=== PATIENT | male | born 1955 | race Caucasian/White ===

== ENCOUNTER 2020-04-18 13:38 | Outpatient (CLI) | payer MEDICARE, SELFPAY ==
--- NOTE | ~2020-04-18 | CT_ITS ---
EXAMINATION: CT abdomen pelvis wo/w con DATE: 04/18/2020 15:16 INDICATION: Gross hematuria TECHNIQUE: Computed tomography (CT) of the abdomen and pelvis was performed without intravenous contr ast. CT of the abdomen and pelvis was then performed with a total of 130 mL Omnipaque 350 intravenous contrast using a double-bolus technique for simultaneous opacification of the renal parenchyma and r enal collecting system. The dose-length product (DLP) was 2029.37 mGy-cm. Automated exposure control and iterative reconstruction technique were employed. COMPARISON: None FINDINGS: The lung bases are clear. The heart size is normal. A 1.8 cm area of fluid attenuation in t he left paraspinal soft tissues at the level of L1 vertebral body is consistent with a sebaceous cyst . The liver, spleen, pancreas, gallbladder, and adrenal glands are normal. No stones are present in t he kidneys or ureters. There are three stones in the bladder which measure 2 cm. There are two divert icula of the left posterolateral bladder wall one of which contains one of the stones. There is no hy dronephrosis or hydroureter. There are peripelvic cysts of the left kidney. No suspicious renal or ur othelial lesion is identified. There is calcified atherosclerosis of the aorta and many of the other arteries. No pathologically enlarged abdominal or pelvic lymph nodes are identified. There are bilate ral fat-containing inguinal hernias. There is no free intraperitoneal gas or evidence of bowel obstru ction. A moderate volume of colonic stool is present. There is moderate lumbar spondylosis. IMPRESSION: 1. Three bladder stones and two diverticula of the left posterolateral bladder wall, one of which con tains a stone. No suspicious renal or urothelial lesion identified. Reviewed, dictated and finalized at location A. IMPRESSION: 1. Three bladder stones and two diverticula of the left posterolateral bladder wall, one of which contains a stone. No suspicious renal or urothelial lesion i dentified.
[2020-04-18 14:59] LABS: Estimated Glomerular Filt Rate > 60
== END 2020-04-18 13:39 | disposition home or self-care (01) ==
PROVIDERS: PCP Internal Medicine; Visit Provider Urology
DX: R31.0 Gross hematuria (principal); N21.0 Calculus in bladder; N32.3 Diverticulum of bladder
CPT/HCPCS: 36415; 74178; Q9967

== ENCOUNTER 2020-05-20 01:31 | Outpatient (CLI) | payer MEDICARE, SELFPAY ==
[2020-05-20 17:56] LABS: SARS-CoV-2 RNA PCR Negative
== END 2020-05-20 01:32 | disposition home or self-care (01) ==
LOC: ANHCOVIDDT 01:32
PROVIDERS: PCP Internal Medicine; Visit Provider Urology
DX: Z01.818 Encounter for other preprocedural examination (principal); Z11.59 Encounter for screening for other viral diseases
CPT/HCPCS: 87635; C9803; U0003

== ENCOUNTER 2020-05-20 07:59 | Outpatient (CLI) | payer MEDICARE, SELFPAY ==
--- NOTE | 2020-05-20 08:02 | ECG_ITS ---
Measurements Intervals [place] Rate: 73 P: 26 NE: 175 QRS: 0 QRSD: 126 T: 39 QT: 371 QTc: 409 Interpretive Statements SINUS RHYTHM INTRAVENTRICULAR CONDUCTION DELAY CONSIDER INFERIOR INFARCT, AGE INDETERMINATE BASELINE ARTIFACT- I, II, AVR, AVL, AVF ABNORMAL ECG Electronically Signed On 05-20-2020 8:19:10 CDT by Gregorio Nye D.O.
== END 2020-05-20 08:00 | disposition home or self-care (01) ==
LOC: ANHSURGERY 08:02
PROVIDERS: PCP Internal Medicine; Visit Provider Urology
DX: Z01.818 Encounter for other preprocedural examination (principal); I10 Essential (primary) hypertension; R94.31 Abnormal electrocardiogram [ECG] [EKG]
CPT/HCPCS: 93005

== ENCOUNTER 2020-05-22 02:38 | Day surgery (SDC) | payer MEDICARE, SELFPAY ==
[2020-05-09 12:08] VITALS: BMI 34.0
--- NOTE | 2020-05-16 12:41 | P.HP_ITS ---
History of Present Illness History of Present Illness Consent: Risks, benefits, and alternatives have been discussed and questions answered. Patient agrees to proceed with procedure. Chief complaint: 3 Bladder Stones/ Gross Hematuria Narrative: Hans Leos is a 65 year old male who recently underwent evaluation for intermittent painless gross hematuria. CT scan of the abdomen and pelvis without contrast shows 3 bladder calculi, each measuring approximately 2 cm. After discussion of therapeutic options he has elected for cystoscopy with laser ablation and removal of bladder stones. We have also started him on finasteride for BPH. Review of Systems Cardiovascular: Cardiovascular: Denies chest pain, Denies lightheadedness, Denies palpitations and Denies dyspnea Respiratory: Respiratory: Denies dyspnea Gastrointestinal: Gastrointestinal: Denies diarrhea, Denies nausea and Denies vomiting Genitourinary: Genitourinary: Denies hematuria and Denies dysuria Endocrine: Endocrine: Denies palpitations [facility] Past Medical History Medical History History of colon cancer in adulthood Hyperlipidemia Hypertension Social History Social History Smoking packs per day: 1 Smoking cigarettes per day: 20.0 Years smoked: 25 Smoking pack-years: 25.00 Smoking status: Former smoker Tobacco type: cigarettes Second hand tobacco smoke exposure: Yes Last use: 10/24/79 Spiritual care concerns: No Meds Home Medications and Allergies Home Medications Medication Instructions Recorded Confirmed Type amlodipine 10 mg PO QPM 05/09/20 05/09/20 History lisinopril 20 mg PO QPM 05/09/20 05/09/20 History simvastatin 20 mg PO QPM 05/09/20 05/09/20 History tamsulosin 0.4 mg PO QPM 05/09/20 05/09/20 History terbinafine HCl 250 mg PO QPM 05/09/20 05/09/20 History Allergies Allergy/AdvReac Type Severity Reaction Status Date / Time METOPROLOL SUCCINATE Allergy Unknown TONGUE Uncoded 05/09/20 12:06 SWELLING Exam Const: General: no acute distress Resp: Effort & Inspection: normal respiratory effort GI: Inspection: non-distended GI Palp: No abdominal tenderness and No Guarding due to palpation present (GI) Auscultation: normal bowel sounds Assessment and Plan Assessment and plan (1) BPH w/o urinary obs/LUTS: Code(s): N40.0 - Benign prostatic hyperplasia without lower urinary tract symptoms Status: Acute (2) Bladder stones: Code(s): N21.0 - Calculus in bladder Status: Acute Assessment and Plan: * Cystoscopy with laser lithotripsy and removal of bladder stones (lithoplaxy).
--- NOTE | 2020-05-21 09:51 | P.PNAN_ITS ---
Anes - Initial Pre Proc Eval Procedure: Operation Date: 05/22/20 07:30 Proposed Procedures p Cystoscopy, Removal Of Bladder Stones - Yunior Davila MD s Holmium Laser Lithotripsy - Yunior Davila MD Date/Time: 05/21/20 09:51 Surgeon: Yunior Davila MD Pre Op Diagnosis: 3 Bladder Stones/ Gross Hematuria Patient Data Age: 65 Gender: M Height: 1.75 m Weight: 104.35 kg Allergies Allergy/AdvReac Type Severity Reaction Status Date / Time METOPROLOL SUCCINATE Allergy Severe TONGUE Uncoded 05/22/20 06:25 SWELLING Home Medications Medication Instructions Recorded Confirmed Type amlodipine 10 mg PO QPM 05/09/20 05/22/20 History lisinopril 20 mg PO QPM 05/09/20 05/22/20 History simvastatin 20 mg PO QPM 05/09/20 05/22/20 History tamsulosin 0.4 mg PO QPM 05/09/20 05/22/20 History terbinafine HCl 250 mg PO QPM 05/09/20 05/22/20 History Patient hx anesthesia problems: none Family hx anesthesia problems: none [facility] Past Medical History Medical History (Updated 05/21/20 @ 09:51 by Joseph Oneill DO) History of colon cancer History of colon cancer in adulthood Hyperlipidemia Hypertension Surgical History Surgical History (Updated 05/21/20 @ 09:51 by Joseph Oneill DO) History of colon resection 2000 Social History Social History Smoking packs per day: 1 Smoking cigarettes per day: 20.0 Years smoked: 25 Smoking pack-years: 25.00 Smoking status: Former smoker Tobacco type: cigarettes Second hand tobacco smoke exposure: Yes Last use: 10/24/79 Living arrangements: with family Spiritual care concerns: No Anes - Eval Final PreProcedure Day of Procedure 05/21/20 09:51 Patient weight: obese Heart: regular rate and rhythm Lungs: clear to auscultation and normal air movement Airway: Mallampati scale class III Neurological: alert and oriented Last oral intake: >/= 8 hours ASA classification: III Emergent: no Anesthetic plan: proceed Anesthesia type and monitoring: general LMA and standard monitoring Informed Consent: The patient's anesthetic plan and its attendant risks and benefits were discussed with the patient/family/POA. Questions were solicited and answers provided to the satisfaction of the patient/family/POA.
[2020-05-22] VITALS (9 sets, daily range): BP systolic 117–178; BP diastolic 53–94; PULSE 60–72; RESP 10–20; TEMP 36.2–36.6; O2SAT 95–100
[2020-05-22] MEDS: LACTATED RINGERS 1,000 ML 30 ML IV CONT ×2 (06:10→08:38)
--- NOTE | 2020-05-22 06:54 | WPDHPUPDATE1 ---
History and Physical Update Update Date/Time: 05/22/20 06:54 History and Physical has been reviewed, including an updated exam of the patient. There are NO changes in the patient's condition. Risks, benefits, and alternatives have been discussed and questions answered. Patient agrees to proceed with procedure.
[2020-05-22] MEDS: ceFAZolin 2 GM/D5W 50 ML 2 GM/50 ML BAG IVPB (07:25)
[2020-05-22] MEDS: LIDOCAINE HCL 2% GEL UROJET 10 ML PKG MUCOUS MEM (08:11)
--- NOTE | 2020-05-22 08:38 | P.OP_ITS ---
Procedure Note - Detailed Date of procedure: 05/22/20 Pre-op diagnosis: 3 Bladder Stones/ Gross Hematuria Post-op diagnosis: same Procedure performed: Cysto., laser lithotripsy and extraction bladder stones Description of procedure: The patient is brought to the operative suite where he was prepped and draped in a routine sterile fashion while in the dorsal lithotomy position after the uneventful induction of a general anesthetic. A 21F rigid cystoscope was placed in his bladder. He has no urethral strictures but moderate prostatic hyperplasia. He has a moderate median lobe enlargement with an estimated prostatic urethral length of approximately 3.0cm. He has three bladder calculi measuring approximately 2-3cm each . Using a 1000 micron holmium laser fiber laser these stones are fractured into smaller particles. The particles are evacuated through a 27 F resectoscope sheath using both the mobile melting gmbh evacuator and by direct extraction with the loop electrode. There is some moderate hematuria determination that procedure and therefore I did place a 22F 3-way catheter with continuous irrigation. The patient was taken to the recovery room having tolerated the procedure well. Anesthesia: GLMA Surgeon: Yunior Davila MD Estimated blood loss (mL): 10 Drains: Yes (18F [place]) Packing: No Pathology: yes Complications: No immediate complications Condition: stable Disposition: PACU
--- NOTE | 2020-05-22 08:55 | SUR.PHASEI ---
0854 - dr billings at bedside assessing carlos catheter and urine
--- NOTE | 2020-05-22 10:21 | SUR.PHASEI ---
0953 - Dr. Davila in room assessing pt. 0955 - carlos removed as ordered by Dr. Davila
== END 2020-05-22 10:27 | disposition home or self-care (01) ==
PROVIDERS: PCP Internal Medicine; Visit Provider Urology
PROC: 0TCB8ZZ Extirpation of Matter from Bladder, Via Natural or Artificial Opening Endoscopic (ICD-10-PCS; CPT 52352; principal; 2020-05-22 07:30)
PROC: (CPT 52318; 2020-05-22 07:30)
DX: N21.0 Calculus in bladder (principal); N40.0 Benign prostatic hyperplasia without lower urinary tract symptoms; I10 Essential (primary) hypertension; E78.5 Hyperlipidemia, unspecified; Z85.038 Personal history of other malignant neoplasm of large intestine; Z90.49 Acquired absence of other specified parts of digestive tract; Z87.891 Personal history of nicotine dependence; E66.9 Obesity, unspecified; Z68.33 Body mass index [BMI] 33.0-33.9, adult
CPT/HCPCS: 52318; 82365; 87635; 88300; 93005; A9270; C9803; J0690; J1100; J2405; J2704; J3010; J7120; U0003

== ENCOUNTER 2020-09-12 08:54 | Outpatient (CLI) | payer MEDICARE, SELFPAY ==
[2020-09-12 09:26] LABS: Alanine Aminotransferase 16 U/L (4-50); Albumin Level 4.4 g/dL (3.5-5.1); Alkaline Phosphatase 47 U/L (38-126); Anion Gap 9 mmol/L (8-16); Aspartate Amino Transferase 22 U/L (17-59); Bilirubin,Total 0.5 mg/dL (0.2-1.3); Blood Urea Nitrogen 17 mg/dL (9-20); Calcium 9.3 mg/dL (8.4-10.2); Carbon Dioxide 29 mmol/L (22-30); Chloride 101 mmol/L (98-107); Estimated Glomerular Filt Rate > 60; Glucose 98 mg/dL (75-110); Potassium 4.2 mmol/L (3.4-5.0); Sodium 139 mmol/L (137-145)
== END 2020-09-12 08:55 | disposition home or self-care (01) ==
PROVIDERS: PCP Family Medicine; Visit Provider Family Medicine
DX: I10 Essential (primary) hypertension (principal)
CPT/HCPCS: 36415; 80053

== ENCOUNTER 2021-04-03 06:45 | Outpatient (CLI) | payer MEDICARE, SELFPAY ==
[2021-04-03 07:50] LABS: Hematocrit 42.6 % (42.0-52.0); Hemoglobin 13.8 g/dL (14.0-18.0); Mean Corpuscular HGB Conc 32.4 g/dl (32-36); Mean Corpuscular Hemoglobin 29.2 pg (26-34); Mean Corpuscular Volume 90.3 fl (80-100); Mean Platelet Volume 10.7 fl (7.4-10.4); Platelet Count Result 207 k/mm3 (150-375); Red Blood Count 4.72 M/mm3 (4.6-6.20); Red Cell Distribution Width 12.4 % (11.5-14.5); White Blood Count 3.2 K/mm3 (4.5-10.0)
[2021-04-03 07:52] LABS: Add Urine Microscopic? NO; Appearance Urine Clear (Clear); Bilirubin Urine Negative (Negative); Blood Urine Negative (Negative); Color Urine Yellow (Yellow); Glucose Urine UA Negative (Negative); Ketones Urine Negative (Negative); Leukocyte Esterase Ur Negative LEU/UL (NEGATIVE); Nitrate Urine Negative (Negative); Protein Urine Negative (Negative); Specific Grav Ur 1.014 (1.001-1.035); Urobilinogen Urine Negative mg/dL (<2.0)
[2021-04-03 09:34] LABS: Alanine Aminotransferase 19 U/L (4-50); Albumin Level 4.3 g/dL (3.5-5.1); Alkaline Phosphatase 52 U/L (38-126); Anion Gap 9 mmol/L (8-16); Aspartate Amino Transferase 24 U/L (17-59); Bilirubin,Total 0.5 mg/dL (0.2-1.3); Blood Urea Nitrogen 12 mg/dL (9-20); Calcium 9.1 mg/dL (8.4-10.2); Carbon Dioxide 26 mmol/L (22-30); Chloride 104 mmol/L (98-107); Cholesterol 163 mg/dL (0-200); Estimated Glomerular Filt Rate > 60; Glucose 100 mg/dL (75-110); HDL Direct 36 mg/dL; Potassium 4.1 mmol/L (3.4-5.0); Sodium 139 mmol/L (137-145); Triglycerides 164 mg/dL (<150)
[2021-04-03 09:45] LABS: LDL Cholesterol Direct 86 mg/dL
[2021-04-03 22:13] LABS: Carcinoembryonic Antigen 0.8 ng/mL (0.0-3.0)
== END 2021-04-03 06:46 | disposition home or self-care (01) ==
PROVIDERS: PCP Family Medicine; Visit Provider Family Medicine
DX: E78.2 Mixed hyperlipidemia (principal); I10 Essential (primary) hypertension; R35.1 Nocturia; Z85.038 Personal history of other malignant neoplasm of large intestine
CPT/HCPCS: 36415; 80053; 80061; 81003; 82378; 84153; 84443; 85027

== ENCOUNTER 2021-10-09 07:03 | Outpatient (CLI) | payer MEDICARE, SELFPAY ==
[2021-10-09 07:38] LABS: Alanine Aminotransferase 19 U/L (4-50); Albumin Level 4.4 g/dL (3.5-5.1); Alkaline Phosphatase 57 U/L (38-126); Anion Gap 10 mmol/L (8-16); Aspartate Amino Transferase 22 U/L (17-59); Bilirubin,Total 0.6 mg/dL (0.2-1.3); Blood Urea Nitrogen 13 mg/dL (9-20); Calcium 8.9 mg/dL (8.4-10.2); Carbon Dioxide 28 mmol/L (22-30); Chloride 103 mmol/L (98-107); Estimated Glomerular Filt Rate > 60; Glucose 105 mg/dL (65-110); Potassium 4.1 mmol/L (3.4-5.0); Sodium 141 mmol/L (137-145)
== END 2021-10-09 07:04 | disposition home or self-care (01) ==
LOC: ANHLAB 07:06
PROVIDERS: PCP Family Medicine; Visit Provider Family Medicine
DX: I10 Essential (primary) hypertension (principal)
CPT/HCPCS: 36415; 80053

== ENCOUNTER 2022-04-09 07:14 | Outpatient (CLI) | payer MEDICARE, SELFPAY ==
[2022-04-09 07:42] LABS: Hematocrit 42.5 % (42.0-52.0); Mean Corpuscular HGB Conc 32.9 g/dl (32-36); Mean Corpuscular Hemoglobin 29.9 pg (26-34); Mean Corpuscular Volume 90.8 fl (80-100); Platelet Count Result 199 k/mm3 (150-375); Red Blood Count 4.68 M/mm3 (4.6-6.20); Red Cell Distribution Width 12.8 % (11.5-14.5); White Blood Count 3.5 K/mm3 (4.5-10.0)
[2022-04-09 07:58] LABS: Alanine Aminotransferase 18 U/L (6-50); Albumin Level 4.4 g/dL (3.5-5.1); Alkaline Phosphatase 55 U/L (38-126); Anion Gap 3 mmol/L (8-16); Aspartate Amino Transferase 21 U/L (17-59); Bilirubin,Total 0.7 mg/dL (0.2-1.3); Blood Urea Nitrogen 12 mg/dL (9-20); Calcium 8.8 mg/dL (8.4-10.2); Carbon Dioxide 27 mmol/L (22-30); Chloride 105 mmol/L (98-107); Cholesterol 161 mg/dL (0-200); Estimated Glomerular Filt Rate > 60; Glucose 100 mg/dL (65-110); HDL Direct 40 mg/dL; Potassium 4.1 mmol/L (3.4-5.0); Sodium 135 mmol/L (137-145); Triglycerides 117 mg/dL (<150)
[2022-04-09 08:09] LABS: LDL Cholesterol Direct 85 mg/dL
[2022-04-09 08:14] LABS: Add Urine Microscopic? NO; Appearance Urine Clear (Clear); Bilirubin Urine Negative (Negative); Blood Urine Negative (Negative); Color Urine Yellow (Yellow); Glucose Urine UA Negative (Negative); Ketones Urine Negative (Negative); Leukocyte Esterase Ur Negative LEU/UL (NEGATIVE); Nitrate Urine Negative (Negative); Protein Urine Negative (Negative); Urobilinogen Urine 0.2 mg/dL (<2.0)
[2022-04-09 08:29] LABS: Prostate Specific Antigen 1.9 ng/mL (< OR = 4.0)
== END 2022-04-09 07:15 | disposition home or self-care (01) ==
PROVIDERS: PCP Family Medicine; Visit Provider Family Medicine
DX: E78.2 Mixed hyperlipidemia (principal); I10 Essential (primary) hypertension; R35.1 Nocturia; R53.83 Other fatigue
CPT/HCPCS: 36415; 80053; 80061; 81003; 84153; 84443; 85027

== ENCOUNTER 2022-10-22 07:11 | Outpatient (CLI) | payer MEDICARE, SELFPAY ==
[2022-10-22 07:44] LABS: Alanine Aminotransferase 28 U/L (6-50); Albumin Level 4.3 g/dL (3.5-5.1); Alkaline Phosphatase 64 U/L (38-126); Anion Gap 6 mmol/L (8-16); Aspartate Amino Transferase 26 U/L (17-59); Bilirubin,Total 0.4 mg/dL (0.2-1.3); Blood Urea Nitrogen 13 mg/dL (9-20); Calcium 8.8 mg/dL (8.4-10.2); Carbon Dioxide 29 mmol/L (22-30); Chloride 101 mmol/L (98-107); Estimated Glomerular Filt Rate > 60; Glucose 102 mg/dL (65-110); Potassium 4.2 mmol/L (3.4-5.0); Sodium 136 mmol/L (137-145)
== END 2022-10-22 07:12 | disposition home or self-care (01) ==
LOC: ANHLAB 07:13
PROVIDERS: PCP Family Medicine; Visit Provider Family Medicine
DX: I10 Essential (primary) hypertension (principal)
CPT/HCPCS: 36415; 80053

== ENCOUNTER 2023-04-09 06:48 | Outpatient (CLI) | payer MEDICARE, SELFPAY ==
[2023-04-09 07:14] LABS: Hematocrit 41.6 % (42.0-52.0); Hemoglobin 13.8 g/dL (14.0-18.0); Mean Corpuscular HGB Conc 33.2 g/dl (32-36); Mean Corpuscular Hemoglobin 30.1 pg (26-34); Mean Corpuscular Volume 90.8 fl (80-100); Platelet Count Result 229 k/mm3 (150-375); Red Blood Count 4.58 M/mm3 (4.6-6.20); Red Cell Distribution Width 12.6 % (11.5-14.5); White Blood Count 4.6 K/mm3 (4.5-10.0)
[2023-04-09 07:20] LABS: Add Urine Microscopic? YES; Appearance Urine Clear (Clear); Bacteria Urine None Seen /hpf; Bilirubin Urine Negative (Negative); Blood Urine Negative (Negative); Color Urine Yellow (Yellow); Glucose Urine UA Negative (Negative); Ketones Urine Negative (Negative); Leukocyte Esterase Ur Trace LEU/UL (NEGATIVE); Nitrate Urine Negative (Negative); Protein Urine Negative (Negative); RBC Urine 0-2 /hpf (0-2); Specific Grav Ur 1.019 (1.001-1.035); Squamous Epithelial Cell Urine None seen /hpf (Few); Urobilinogen Urine 0.2 mg/dL (<2.0); WBC Urine 0-5 /hpf (0-3); pH Urine 5.5 (5.0-9.0)
[2023-04-09 07:32] LABS: Alanine Aminotransferase 22 U/L (6-50); Albumin Level 4.5 g/dL (3.5-5.1); Alkaline Phosphatase 57 U/L (38-126); Anion Gap 5 mmol/L (8-16); Aspartate Amino Transferase 25 U/L (17-59); Bilirubin,Total 0.7 mg/dL (0.2-1.3); Blood Urea Nitrogen 16 mg/dL (9-20); Calcium 8.7 mg/dL (8.4-10.2); Carbon Dioxide 27 mmol/L (22-30); Chloride 104 mmol/L (98-107); Cholesterol 151 mg/dL (0-200); Estimated Glomerular Filt Rate > 60; Glucose 98 mg/dL (65-110); HDL Direct 42 mg/dL; Sodium 136 mmol/L (137-145); Triglycerides 85 mg/dL (<150)
[2023-04-09 07:43] LABS: LDL Cholesterol Direct 84 mg/dL
[2023-04-09 08:03] LABS: Prostate Specific Antigen 2.1 ng/mL (< OR = 4.0)
== END 2023-04-09 06:49 | disposition home or self-care (01) ==
PROVIDERS: PCP Family Medicine; Visit Provider Family Medicine
DX: R35.1 Nocturia (principal); E78.5 Hyperlipidemia, unspecified; I10 Essential (primary) hypertension
CPT/HCPCS: 36415; 80053; 80061; 81001; 84153; 84443; 85027

== ENCOUNTER 2023-08-12 00:32 | Day surgery (SDC) | payer MEDICARE, SELFPAY ==
[2023-08-05 12:07] VITALS: BMI 34.7
--- NOTE | 2023-08-05 12:16 | PC.NURSE ---
Report to the Outpatient Waiting Room, entrance under the green pavilion located off [facility], at time __1230 on date __08/12/23 . Planned Procedure Time: __1:30 PM . Time changes happen often and if your time is changed the preop area will call you the afternoon before. - You and your visitor will be asked to self-screen and do not enter if you have any COVID symptoms. - A mask is optional within the hospital at this time. -MAY HAVE BREAKFAST & LIGHT LUNCH Take the following medications with a SIP of water the morning of surgery: ___REG HOME MEDS DO NOT STOP ANY OF YOUR OTHER PRESCRIPTION MEDICATIONS PRIOR TO SURGERY ?EXCEPT THE FOLLOWING Medications to discontinue per physician Date to take last dose Please no make-up, nail occitan, hairspray, perfume, deodorant, or body powder the day of surgery. No jewelry (including any body piercings) or valuables the day of surgery, leave them at home. Please take a shower or bath the night before, or the morning of, surgery with an antibacterial soap. Wear comfortable, loose fitting clothing. Children are encouraged to wear pajamas. - Jewelry must be removed prior to entering the operating room. Rings and piercings that are not removed may be cut off. - The hospital will not accept responsibility for valuables. - Please leave all valuables, including medications, at home the day of surgery. -MAY DRIVE SELF TO/FROM HOSPITAL, BUT A RAILWAY SIGNAL OPERATOR IS RECOMMENDED Follow any additional instructions given to you from your surgeon. If you or anyone in your household have experienced Covid symptoms in the past week, please notify your surgeon or the nurse liaison at the phone number below for possible testing. Telephone instructions given to ____PT and asked if any additional questions and then verbalized understanding. Patient advised to call surgeon office or pre surgery nurse liaison [phone] if any additional questions.
[2023-08-12 12:04] VITALS: BP 155/74; PULSE 76; RESP 18; TEMP 36.6; O2SAT 99
--- NOTE | 2023-08-12 12:57 | WPDHPUPDATE1 ---
History and Physical Update Update Date/Time: 08/12/23 12:57 History and Physical has been reviewed, including an updated exam of the patient. There are NO changes in the patient's condition. Risks, benefits, and alternatives have been discussed and questions answered. Patient agrees to proceed with procedure.
[2023-08-12 13:19] VITALS: BP 157/67; PULSE 70; RESP 16; O2SAT 94
[2023-08-12 13:29] VITALS: BP 150/66; PULSE 74; RESP 16; O2SAT 94
[2023-08-12] MEDS: LIDO 1%/EPINEPHRINE 1:100,000 20 ML VIAL INFILTRATE (13:31)
[2023-08-12 13:39] VITALS: BP 135/60; PULSE 79; RESP 16; O2SAT 94
[2023-08-12 13:49] VITALS: BP 127/62; PULSE 78; RESP 16; O2SAT 96
[2023-08-12] MEDS: BACITRACIN OINTMENT 15 GM TUBE 1 APPLIC TOPICAL (13:49)
[2023-08-12 14:01] VITALS: BP 139/95; PULSE 78; RESP 16; O2SAT 100
--- NOTE | 2023-08-12 15:08 | W.PM.PROC2 ---
Procedure Note - Detailed Date of Procedure 08/12/23 Pre-op Diagnosis 3 cm Back Mass-midback Post-op Diagnosis Same Procedure Performed Excision of 3 cm mid back mass Surgeon Christoph Gusman, DO Anesthesia Local (1% lidocaine with epinephrine) Indications This is a 68-year-old man who presented with a mid back mass that was causing some discomfort, swelling, and occasional drainage. He was found to have what appeared to be an infected cyst and was placed on antibiotics by his PCP. This appeared to help with the redness and discomfort, but there still appeared to be a cyst present once the infection improved. Discussions were made with the patient about excising this to prevent recurrent infections. Findings Excision of the 3 cm mid back mass was performed. This appeared to be an inclusion cyst containing sebaceous material. The mass was completely excised and sent to the lab for pathology. No other abnormalities were noted. Description of Procedure Procedure as well as risks, benefits, and alternatives were discussed with the patient. Written consent was obtained and placed in chart prior to procedure. Patient was brought back to surgical suite. He was placed in right lateral decubitus position on the operating table. Time-out was done to confirm patient and procedure. His back area was prepped and draped in sterile fashion using chlorhexidine prep. 1% lidocaine with epinephrine was infiltrated locally around the mass. A 3 cm oblique elliptical incision was made directly over the mass using a 15 blade scalpel. The 15 blade scalpel was used to continue sharp dissection around the cyst and carefully excise the entire cyst. Once it was completely excised, hemostasis was achieved with electrocautery. The mass was removed and sent to the lab for pathology. The wound bed was then irrigated with sterile saline. No further abnormalities were identified. The skin edges were then reapproximated using 3-0 nylon vertical mattress interrupted sutures. Bacitracin ointment was applied followed by 4 x 4 gauze and Medipore tape. The patient was then transferred to recovery. Estimated Blood Loss 5 Pathology Yes (Back mass) Complications No immediate complications Condition Stable Disposition Same day [facility] Billing Surgery - Charge Forward: Surgery Billing
== END 2023-08-12 14:20 | disposition home or self-care (01) ==
PROVIDERS: PCP Family Medicine; Visit Provider Surgery
PROC: (CPT 11403; principal; 2023-08-12 13:00)
DX: L72.0 Epidermal cyst (principal); I10 Essential (primary) hypertension; E78.5 Hyperlipidemia, unspecified; Z85.038 Personal history of other malignant neoplasm of large intestine; Z90.49 Acquired absence of other specified parts of digestive tract
CPT/HCPCS: 11403; 88304; A9270

== ENCOUNTER 2023-10-14 06:35 | Outpatient (CLI) | payer MEDICARE, SELFPAY ==
[2023-10-14 07:00] LABS: Basophils Percent Auto 0.4 % (0.2-1.2); Eosinophils Absolute Auto 0.2 K/mm3 (0-0.3); Eosinophils Percent Auto 3.2 % (0-4.4); Hematocrit 44.9 % (42.0-52.0); Hemoglobin 14.6 g/dL (14.0-18.0); Immature Granulocyte Absolute 0.02 K/mm3 (0.00-0.031); Immature Granulocyte Percent A 0.4 % (0-0.5); Lymphocytes Absolute Auto 2.24 K/mm3 (0.9-3.2); Lymphocytes Percent Auto 48.4 % (18.3-44.2); Mean Corpuscular HGB Conc 32.5 g/dl (32-36); Mean Corpuscular Hemoglobin 29.4 pg (26-34); Mean Corpuscular Volume 90.5 fl (80-100); Monocytes Absolute Auto 0.4 K/mm3 (0.1-0.6); Monocytes Percent Auto 9.5 % (2.6-8.5); Neutrophils Absolute Auto 1.8 K/mm3 (1.3-6.7); Neutrophils Percent Auto 38.1 % (45.5-73.1); Platelet Count Result 231 k/mm3 (150-375); Red Blood Count 4.96 M/mm3 (4.6-6.20); Red Cell Distribution Width 12.7 % (11.5-14.5); White Blood Count 4.6 K/mm3 (4.5-10.0)
[2023-10-14 07:17] LABS: Alanine Aminotransferase 24 U/L (6-50); Albumin Level 4.5 g/dL (3.5-5.1); Alkaline Phosphatase 61 U/L (38-126); Anion Gap 5 mmol/L (8-16); Aspartate Amino Transferase 28 U/L (17-59); Bilirubin,Total 0.7 mg/dL (0.2-1.3); Blood Urea Nitrogen 14 mg/dL (9-20); Calcium 9.5 mg/dL (8.4-10.2); Carbon Dioxide 27 mmol/L (22-30); Chloride 104 mmol/L (98-107); Estimated Glomerular Filt Rate > 60; Glucose 115 mg/dL (65-110); Sodium 136 mmol/L (137-145)
[2023-10-14 07:26] LABS: Iron 96 ug/dL (49-181)
[2023-10-14 07:35] LABS: Percent Iron Saturation 29 % (20-50)
[2023-10-14 08:19] LABS: Folic Acid 15.1 ng/mL (2.76->20)
== END 2023-10-14 06:36 | disposition home or self-care (01) ==
LOC: ANHLAB 06:41
PROVIDERS: PCP Family Medicine; Visit Provider Physician Assistant
DX: D64.9 Anemia, unspecified (principal); I10 Essential (primary) hypertension; E78.2 Mixed hyperlipidemia
CPT/HCPCS: 36415; 80053; 82607; 82728; 82746; 83540; 83550; 85025

== ENCOUNTER 2024-05-12 07:24 | Outpatient (CLI) | payer MEDICARE, SELFPAY ==
[2024-05-12 08:09] LABS: Hematocrit 43.2 % (42.0-52.0); Hemoglobin 14.4 g/dL (14.0-18.0); Mean Corpuscular HGB Conc 33.3 g/dl (32-36); Mean Corpuscular Hemoglobin 30.2 pg (26-34); Mean Corpuscular Volume 90.6 fl (80-100); Mean Platelet Volume 10.5 fl (7.4-10.4); Platelet Count Result 231 k/mm3 (150-375); Red Blood Count 4.77 M/mm3 (4.6-6.20); Red Cell Distribution Width 12.5 % (11.5-14.5); White Blood Count 4.7 K/mm3 (4.5-10.0)
[2024-05-12 08:14] LABS: Appearance Urine Clear (Clear); Bilirubin Urine Negative (Negative); Blood Urine Negative (Negative); Color Urine Yellow (Yellow); Glucose Urine UA Negative (Negative); Ketones Urine Negative (Negative); Leukocyte Esterase Ur Negative LEU/UL (Negative); Nitrate Urine Negative (Negative); Protein Urine Negative (Negative); Specific Grav Ur 1.017 (1.001-1.035); Urobilinogen Urine 0.2 mg/dL (<2.0); pH Urine 5.5 (5.0-9.0)
[2024-05-12 08:25] LABS: Add Urine Microscopic? NO
[2024-05-12 08:26] LABS: Alanine Aminotransferase 19 U/L (6-50); Albumin Level 4.5 g/dL (3.5-5.1); Alkaline Phosphatase 57 U/L (38-126); Anion Gap 9 mmol/L (4-12); Aspartate Amino Transferase 23 U/L (17-59); Bilirubin,Total 0.7 mg/dL (0.2-1.3); Blood Urea Nitrogen 14 mg/dL (9-20); Calcium 8.9 mg/dL (8.4-10.2); Carbon Dioxide 27 mmol/L (22-30); Chloride 101 mmol/L (98-107); Cholesterol 170 mg/dL (0-200); Estimated Glomerular Filt Rate > 60; Glucose 101 mg/dL (65-110); HDL Direct 35 mg/dL; Sodium 137 mmol/L (137-145); Triglycerides 247 mg/dL (<150)
[2024-05-12 08:36] LABS: LDL Cholesterol Direct 92 mg/dL
[2024-05-12 08:53] LABS: Prostate Specific Antigen 2.3 ng/mL (< OR = 4.0)
== END 2024-05-12 07:25 | disposition home or self-care (01) ==
LOC: ANHLAB 07:28
PROVIDERS: PCP Family Medicine; Visit Provider Family Medicine
DX: E78.2 Mixed hyperlipidemia (principal); I10 Essential (primary) hypertension; N40.0 Benign prostatic hyperplasia without lower urinary tract symptoms; Z00.00 Encounter for general adult medical examination without abnormal findings; R53.83 Other fatigue
CPT/HCPCS: 36415; 80053; 80061; 81003; 84153; 84443; 85027

== ENCOUNTER 2024-12-08 07:10 | Outpatient (CLI) | payer MEDICARE, SELFPAY ==
--- OUTSIDE RECORDS SUMMARY | 2024-12-08 07:13 | XMS_ITS | Clinical Summary ---
Author Organization [facility] Address [address], [address] [address] Phone Care Team Providers Care Silk Examiner Name Role Phone Jeremy Agee DPM Unavailable [phone] Provider, Not On File Primary Care Provider Unav ailable Allergies Active Allergy Reactions Criticality Noted Date Comments Metoprolol Tartrate Swelling High (Edema) Medications lisinopril (PRINIVIL, ZESTRIL) 20 MG Tablet TAKE ONE TABLET BY MOUTH ONCE DAILY 90 Tab 3 7 Active Additional Information Patient taking differently: 40 mg EVERY EVENING, Reported on 10/01/2024 amLODIPine (NORVASC) 10 MG Tablet TAKE ONE TABLET BY MOUTH ONCE DAILY 90 Tab 2 7 Active Additional Information Patient taking differently: EVERY EVENING, Reported on 10/01/2024 tamsulosin (FLOMAX) 0.4 MG CapsuleIndicatio ns:Prostate enlargement TAKE ONE CAPSULE BY MOUTH ONCE DAILY 90 Cap 3 7 Active Additional Information Patient taking differently: EVERY EVENING, Reported on 10/01/2024 simvastatin (ZOCOR) 20 MG Tablet Take 20 mg by mouth every evening. Active Active Problems Problem Noted Date Diagnosed Date Pain in toes of both feet 02/27/2016 Tinea pedis of both feet 02/27/2016 Prostate enlargement 10/03/2015 Hypertension Colon cancer Onychomycosis Erectile dysfunction Encounters Date Type Department Care Team Description 10/01/2024 11:34 AM ELECTRICIAN SHOP Anesthesia Event [facility] [address] [place] [address] Poli Liu, WEATHER FORCASTER, REEL OPERATOR 10/01/2024 11:20 AM ELECTRICIAN SHOP - 10/01/2024 11:40 AM [facility]IAN [facility] [address] [address] [place] [address] Cheri Zavala MD PhD CATARACT EXTRACTION WITH INTRAOCULAR LENS PLACEMENT, RIGHT EYE 10/01/2024 9:41 AM ELECTRICIAN SHOP - 10/01/2024 12:00 PM ELECTRICIAN SHOP [facility] Preop[facility]Pacu II [address] [place] [address] Cehri Zavala MD PhD Provider, Anesthesiologist Discharge Disposition: Discharged to home or Selfcare 10/01/2024 Travel 09/24/2024 Travel from Last 3 Months Immunizations Immunization Administration Dates Next Due Covid-19, Mrna, Lnp-s, Pf, 30 Mcg/0.3 Ml Dose (P fizer) 01/30/2021,01/07/2021 Family History Relation Name Status Comments Father Mother Social History Tobacco Use Types Packs/Day Years Used Date Smoking Tobacco: Former Cigarettes Q uit: 10/03/1995 Smokeless Tobacco: Never Tobacco Cessation:Counseling Given: Not Answered Alcohol Use Standard Drinks/Week Comments No 0 (1 standard drink = 0.6 oz pur e alcohol) Sexually Active Control Partners Comments Yes Sex and Gender Information Value Date Recorded Sex Assigned at Not on file Legal Sex Male 8:58 PM CDT Gender Identity Not on file Sexual Orientation Not on file Last Filed Vital Signs Vital Sign Reading Time Taken Comments Blood Pressure 159/90 10/01/2024 11:56 AM ELECTRICIAN SHOP Pulse 73 10/01/2024 11:56 AM ELECTRICIAN SHOP Temperature 36.8 C (98.2 F) 10/01/2024 11:56 AM ELECTRICIAN SHOP Respiratory Rate 15 10/01/2024 11:56 AM ELECTRICIAN SHOP Oxygen Saturation 97% 10/01/2024 11:56 AM ELECTRICIAN SHOP Inhaled Oxygen Concentration - - Weight 108.9 kg (240 lb) 10/01/2024 10:06 AM ELECTRICIAN SHOP Height 175.3 cm (5' 9 ) 10/01/2024 10:06 AM ELECTRICIAN SHOP Body Mass Index 35.44 10/01/2024 10:06 AM ELECTRICIAN SHOP Plan of Treatment Health Maintenance Due Date Last Done Comments Hepatitis C Virus (HCV) Screening 1955 TdaP Immunization 1954 Pneumococcal Immunization (5 0+ years) (1 of 2 - PCV) 1973 Zoster Immunization (1 of 2) 1973 Cologuard 2004 Immunochemical Fecal Occult Blood 2004 AAA Screening Ultrasound 2019 Colonoscopy 03/04/2024 03/04/2014 Colorectal Cancer Screening 03/04/2024 Influenza Immunization (#1) 2024 SARS-COV-2 Immunization ( season) 2024 10/10/2021, 01/30/2021, 01/07/2021 Respiratory Syncytial Virus (RSV) Immunization (Adult) (1 - 1-dose 75+ series) 2029 03/04/2014 Hepatitis B Immunization Aged Out No longer eligible based on patient's age to complete this topic Meningococcal Immunization (ACWY) Aged Out No longer eligible b ased on patient's age to complete this topic Rotavirus Immunization Aged Out No lo nger eligible based on patient's age to complete this topic Medical Devices Implanted Type Area Jinrikisha Driver Device Identifier Shelf Expiration Date Model / Serial / Lot Tehcnis 1-Piece Iol With Simplicity Delivery System Implanted:Qty: 1 on 09/03/2024 by Cheri Zavala MD PhD at [facility] Left: Eye 07/23/2026 [id number] / [id number] / [id number] Right Lens Implanted:Qty: 1 on 10/01/2024 by Cheri Zavala MD PhD at [facility] Right: Eye [employer] 05/04/2027 [id number] / [id number] / [id number] Procedures Procedure Name Priority Date/Time Associated Diagnosis Comments CATARACT EXTRACTION WITH IOL IMPLANT 10/01/2024 11:23 AM ELECTRICIAN SHOP VISUALLY SIGNIFICANT CATARACT, RIGHT EYE Special Needs 5'9 240lbs HM COLONOSCOPY Routine 03/04/2014 from Last 3 Months or Most Recently Relevant to Health Maintenance Results * HM COLONOSCOPY (03/04/2014) us Gerardo Aldana DO PROCEDURE/MINOR SURGICAL ORDERAB LES Final Result from Last 3 Months or Most Recently Relevant to Health Maintenance [facility] Care Teams Silk Examiner Relationship Specialty Start Date End Date Provider, Not On File [place] PCP - General 09/03/24 Jeremy Agee DPM Podiatry 02/27/16
[2024-12-08 08:41] LABS: Creatinine Urine 84.3 mg/dL
[2024-12-08 08:42] LABS: Microalbumin Urine Random 20.2 mg/L (0-16.7)
== END 2024-12-08 07:11 | disposition home or self-care (01) ==
PROVIDERS: PCP Family Medicine; Visit Provider Family Medicine
DX: I10 Essential (primary) hypertension (principal)
CPT/HCPCS: 82043

== ENCOUNTER 2025-06-15 06:50 | Outpatient (CLI) | payer MEDICARE, SELFPAY ==
--- OUTSIDE RECORDS SUMMARY | 2025-06-15 06:54 | XMS_ITS | Patient Health Record ---
Author Organization [facility] Address [address] [place], [place] [id number] Care Team Providers Care Archeology Professor Name Role Phone BarbaraBLANCA che Unavailable [phone] Kj Kruse Unavailable Unavailable Reason For Referral No Information Plan Of Treatment No Information Insurance Providers Payer Name Payer Address Payer Phone Subscriber Number Group Number Insured Name Patient Relationship to Insured Coverage Start Date Coverage End Date AARP MedicareCom plete ([facility]) [address] [place], [place] [id number] JAMES AMES Self - patient is the insured
--- OUTSIDE RECORDS SUMMARY | 2025-06-15 06:54 | XMS_ITS | Clinical Summary ---
Author Organization [facility] Address [address], [address] [address] Phone Care Team Providers Care Manager Privacy Name Role Phone Jeremy Agee DPM Unavailable [phone] Provider, Not On File Primary Care [...] 10/03/2015 Hypertension Colon cancer Onychomycosis Erectile dysfunction Immunizations Immunization Administration Dates Next Due Covid-19, [...] Comments Blood Pressure 159/90 10/01/2024 11:56 AM CRANKSHAFT STRAIGHTENER Pulse 73 10/01/2024 11:56 AM CRANKSHAFT STRAIGHTENER Temperature 36.8 C (98.2 F) 10/01/2024 11:56 AM CRANKSHAFT STRAIGHTENER Respiratory Rate 15 10/01/2024 11:56 AM CRANKSHAFT STRAIGHTENER Oxygen Saturation 97% 10/01/2024 11:56 AM CRANKSHAFT STRAIGHTENER Inhaled Oxygen Concentration - - Weight 108.9 kg (240 lb) 10/01/2024 10:06 AM CRANKSHAFT STRAIGHTENER Height 175.3 cm (5' 9) 10/01/2024 10:06 AM CRANKSHAFT STRAIGHTENER Body Mass Index 35.44 10/01/2024 10:06 AM CRANKSHAFT STRAIGHTENER Plan of Treatment Health Maintenance Due Date Last Done Comments Hepatitis C Virus (HCV) Screening 1954 TdaP Immunization 1954 Pneumococcal Immunization (5 0+ years) (1 of 2 - PCV) 1973 Zoster Immunization (1 of 2) 1973 Cologuard 1999 Immunochemical Fecal Occult Blood 1999 AAA Screening Ultrasound 2019 Colonoscopy 03/04/2024 03/04/2014 Colorectal Cancer Screening 03/04/2024 SARS-COV-2 Immunization ( season) 2024 10/10/2021, 01/30/2021, 01/07/2021 Influenza Immunization (#1) 2025 Respiratory Syncytial Virus (RSV) Immunization (Adult) (1 - 1-dose 75+ series) 2029 Hepatitis B Immunization Aged Out No longer eligible based on patient's age to complete this topic Human Papillomavirus (HPV) Immunization Aged Out No longer eligible b ased on patient's age to complete this topic Meningococcal Immunization (ACWY) Aged Out No longer eligible b ased on patient's age to complete this topic Rotavirus Immunization Aged Out No lo nger eligible based on patient's age to complete this topic Medical Devices Implanted Type Area Pipe Fitter Welding Device Identifier Shelf Expiration Date Model / Serial / Lot Merna 1-Piece Iol With Simplicity Delivery System Implanted:Qty: 1 on 09/03/2024 by Cheri Zavala MD PhD at [facility] Left: Eye 07/23/2026 [id number] / [id number] / [id number] Right Lens Implanted:Qty: 1 on 10/01/2024 by Cheri Zavala MD PhD at [facility] Right: Eye [employer] 05/04/2027 [id number] / [id number] / [id number] Procedures Procedure Name Priority Date/Time Associated Diagnosis Comments COLONOSCOPY Routine 03/04/2014 from Last 3 Months or Most Recently Relevant to Health Maintenance Results * COLONOSCOPY (03/04/2014) Gerardo Aldana DO PROCEDURE/MINOR SURGICAL ORDERAB LES Final Result from Last 3 Months or Most Recently Relevant to Health Maintenance Insurance MEDICARE [facility] Care Teams Manager Privacy Relationship Specialty Start Date End Date Provider, Not On File [place] PCP - General 09/03/24 Jeremy Agee DPM Podiatry 02/27/16
[2025-06-15 07:50] LABS: Hematocrit 40.9 % (42.0-52.0); Hemoglobin 13.6 g/dL (14.0-18.0); Immature Granulocyte Percent A 0.5 % (0-0.5); Lymphocytes Absolute Auto 2.41 K/mm3 (0.9-3.2); Mean Corpuscular HGB Conc 33.3 g/dl (32-36); Mean Corpuscular Hemoglobin 29.9 pg (26-34); Mean Corpuscular Volume 89.9 fl (80-100); Nucleated Red Blood Cells Absolute Auto 0.000 K/mm3 (0.0-0.012); Nucleated Red Blood Cells Perc 0.0 % (0.0-0.2); Platelet Count Result 234 k/mm3 (150-375); Red Blood Count 4.55 M/mm3 (4.6-6.20); White Blood Count 6.0 K/mm3 (4.5-10.0)
[2025-06-15 08:14] LABS: Alanine Aminotransferase 20 U/L (6-50); Albumin Level 4.4 g/dL (3.5-5.1); Alkaline Phosphatase 63 U/L (38-126); Anion Gap 7 mmol/L (4-12); Aspartate Amino Transferase 24 U/L (17-59); Bilirubin,Total 0.6 mg/dL (0.2-1.3); Blood Urea Nitrogen 17 mg/dL (9-20); Calcium 9.3 mg/dL (8.4-10.2); Carbon Dioxide 26 mmol/L (22-30); Chloride 104 mmol/L (98-107); Cholesterol 183 mg/dL (0-200); Estimated Glomerular Filt Rate > 60; Glucose 102 mg/dL (65-110); HDL Direct 38 mg/dL; Potassium 4.3 mmol/L (3.4-5.0); Sodium 137 mmol/L (137-145); Total Protein 7.2 g/dL (6.3-8.2); Triglycerides 235 mg/dL (<150)
[2025-06-15 10:19] LABS: Hemoglobin A1C 5.4 % (<5.7)
== END 2025-06-15 06:51 | disposition home or self-care (01) ==
PROVIDERS: PCP Family Medicine; Visit Provider Family Medicine
DX: E78.2 Mixed hyperlipidemia (principal); I10 Essential (primary) hypertension; Z13.1 Encounter for screening for diabetes mellitus
CPT/HCPCS: 36415; 80053; 80061; 83036; 85025